=== PATIENT | male | born 1980 | race Two or more races ===

== ENCOUNTER 2022-11-04 09:35 | Emergency (ER) | payer OTHER ==
[~2022-11-04] VITALS: Ht 182.9 cm; Wt 70.3 kg
[2022-11-04] MEDS ORDERED: QUETIAPINE FUM400 M1 (09:49)
[2022-11-04] MEDS ORDERED: BUPROPION XL450 MG (09:49)
[2022-11-04] MEDS ORDERED: PROZAC20 MG PO (09:50)
== END 2022-11-04 12:53 | disposition home or self-care (01) ==
LOC: ER 09:35
DX: M25.562 Pain in left knee (principal)